=== PATIENT | male | born 1970 | race Caucasian/White ===

== ENCOUNTER 2016-04-10 02:40 | Emergency (ER) | payer SELFPAY ==
[~2016-04-10] VITALS: Ht 182.9 cm; Wt 91.3 kg
[~2016-04-10 02:40] MED LIST: DICL75 PO
[2016-04-10 02:46] VITALS: BP 131/88; PULSE 70; RESP 16; TEMP 98.1; O2SAT 96
[2016-04-10] MEDS ORDERED: IBUP800T23 PO (04:23)
--- NOTE | 2016-04-10 04:24 | PD ---
HPI Chief Complaint: Oral / Dental Pain or Problem Time Seen by Provider: 04:13 Travel History International Travel<30 days: No Contact w/Intl Traveler<30days: No Traveled to known affect area: No History of Present Illness HPI The patient is a 45-year-old male that complains of dental pain around tooth #1 since 11 PM tonight. He denies any fever. He does have a cracked tooth around tooth #4. He states the pain is diffuse and not very specific to one single tooth. He did not call a dentist yet. [facility] Past Medical History Diminished Hearing: No Kidney Stones: Yes Immunizations Current: Yes Past Surgical History Appendectomy: Yes Social History Alcohol Use: Yes (OCCASIONAL) Tobacco Use: No Substance Use: No Allergies-Medications (Allergen,Severity, Reaction): Coded Allergies: No Known Allergies (Verified , 04/10/16) Reported Meds & Prescriptions Reported Meds & Active Scripts Active No Active Prescriptions or Reported Medications Review of Systems Except as stated in HPI: all other systems reviewed are Neg Physical Exam Narrative GENERAL: Well-nourished, well-developed patient in slight apparent distress with his dental pain. His vital signs are normal. SKIN: Warm and dry. HEAD: Normocephalic. EYES: No scleral icterus. No injection or drainage. NECK: Supple, trachea midline. No JVD or lymphadenopathy. CARDIOVASCULAR: Regular rate and rhythm without murmurs, gallops, or rubs. RESPIRATORY: Breath sounds equal bilaterally. No accessory muscle use. GASTROINTESTINAL: Abdomen soft, non-tender, nondistended. MUSCULOSKELETAL: No cyanosis, or edema. BACK: Nontender without obvious deformity. No CVA tenderness. DENTAL: No loose teeth. No malocclusion. No drainable abscesses are noted. There is a chipped tooth on tooth #4. There is tenderness around the wisdom tooth next to tooth #1. Data Data Last Documented VS Vital Signs Date Time Temp Pulse Resp B/P Pulse Ox O2 Delivery O2 Flow Rate FiO2 04/10/16 02:46 98.1 70 16 131/88 96 MDM Medical Decision Making Medical Screen Exam Complete: Yes Emergency Medical Condition: Yes Medical Record Reviewed: Yes Differential Diagnosis Dental infection, drug seeking behavior, drainable dental abscess Narrative Course The patient has a dental infection. He has no drainable dental abscesses. Plan: The patient be given amoxicillin 500 mg 3 times daily with several refills and he is to follow-up with a dentist. He is also given Motrin 800 mg to take 3 times daily. Diagnosis Primary Impression: Dental infection Additional Instructions: As we discussed, it is necessary to follow-up with a dentist. The amoxicillin is free at [facility] pharmacy. Take the appropriate regularly along with Tylenol and this is usually more than enough to relieve the pain. Med/Other Pt SpecificInfo: Prescription(s) given Scripts Ibuprofen 800 Mg Bme374 Mg PO TID #45 TAB Ref 0 Prov:Grant Nam MD 04/10/16 Disposition: DISCHARGE HOME Condition: Stable Grant Nam MD Apr 10, 2016 04:23
[2016-04-10] MEDS ORDERED: AMOXICILLIN 875 MG TAB PO ONE (04:30)
[2016-04-10] MEDS ORDERED: IBUPROFEN 800 MG TAB PO ONE (04:30)
[2016-04-10] MEDS ORDERED: AMOX500C PO (04:36)
[2016-04-10] MEDS ORDERED: LIDOCAINE 1%/EPINEPHrine 1:100,000 SOLN 20 ML VIAL INFIL ONE (05:00)
[2016-04-10] MEDS ORDERED: PERC5TAB12 PO (05:16)
== END 2016-04-10 05:21 | disposition home or self-care (01) ==
LOC: PHED 02:40
DX: K04.7 Periapical abscess without sinus (principal); Z87.442 Personal history of urinary calculi
CPT/HCPCS: 99282

== ENCOUNTER 2016-09-08 20:56 | Emergency (ER) | payer SELFPAY ==
[~2016-09-08 20:56] MED LIST changes: +AMOX500C PO; -DICL75 PO; +IBUP800T23 PO; +PERC5TAB12 PO
[2016-09-08 21:00] VITALS: BP 140/79; PULSE 54; RESP 20; TEMP 97.3; O2SAT 97
[2016-09-08] MEDS ORDERED: MELO-1 PO (21:38)
[2016-09-08] MEDS ORDERED: PENI250T PO (21:38)
--- NOTE | 2016-09-08 21:39 | PD ---
HPI Chief Complaint: Oral / Dental Pain or Problem Time Seen by Provider: 21:05 Travel History International Travel<30 days: No Contact w/Intl Traveler<30days: No Traveled to known affect area: No History of Present Illness HPI 46-year-old male presents emergency department for evaluation of left upper dental pain times several weeks. Patient reports that over the last week has become increasingly more painful prompting his visit today. He reports he actually had a tetanus appointment this morning but for some reason did not go to the appointment. He reports he's had dental infections in the past with similar pain. He denies fever or chills. Severity is mild, no aggravating or alleviating factors. PFSH Past Medical History Medical History: Denies Significant Hx Diminished Hearing: No Kidney Stones: Yes Immunizations Current: Yes Tetanus Vaccination: < 5 Years Influenza Vaccination: No Past Surgical History Appendectomy: Yes Social History Alcohol Use: Yes (Occ.) Tobacco Use: No Substance Use: No Allergies-Medications (Allergen,Severity, Reaction): Coded Allergies: No Known Allergies (Verified , 09/08/16) Reported Meds & Prescriptions Reported Meds & Active Scripts Active No Active Prescriptions or Reported Medications Review of Systems Except as stated in HPI: all other systems reviewed are Neg General / Constitutional: No: Fever Eyes: No: Visual changes HENT: No: Headaches Cardiovascular: No: Chest Pain or Discomfort Respiratory: No: Shortness of Breath Gastrointestinal: No: Abdominal Pain Genitourinary: No: Dysuria Physical Exam Narrative GENERAL: Well-nourished, well-developed patient. SKIN: Focused skin assessment warm/dry. HEAD: Normocephalic. EYES: No scleral icterus. No injection or drainage. MOUTH: Tooth #15 decayed with surrounding gum erythema. Area is tender to palpation. No identifiable fluctuant abscess. NECK: Supple, trachea midline. No JVD or lymphadenopathy. CARDIOVASCULAR: Regular rate and rhythm without murmurs, gallops, or rubs. RESPIRATORY: Breath sounds equal bilaterally. No accessory muscle use. GASTROINTESTINAL: Abdomen soft, non-tender, nondistended. MUSCULOSKELETAL: No cyanosis, or edema. BACK: Nontender without obvious deformity. No CVA tenderness. Data Data Last Documented VS Vital Signs Date Time Temp Pulse Resp B/P Pulse Ox O2 Delivery O2 Flow Rate FiO2 09/08/16 21:00 97.3 54 20 140/79 97 MDM Medical Decision Making Medical Screen Exam Complete: Yes Emergency Medical Condition: Yes Differential Diagnosis Dental caries, dental infection, dental abscess Narrative Course 46-year-old male with one-week history of left upper dental pain. On exam patient has gum swelling around tooth #15. Patient will be treated with antibiotics and NSAIDs. Patient instructed to follow with his dentist. Diagnosis Primary Impression: Dental infection Referrals: Dentist Scripts Meloxicam 15 Mg Tab15 Mg PO DAILY #30 TAB Ref 0 Prov:Peggy Corral 09/08/16 Penicillin V Potassium 250 Mg Otf221 Mg PO Q6H #28 TAB Prov:Peggy Corral 09/08/16 Disposition: 01 DISCHARGE HOME Condition: Stable Peggy Corral Sep 08, 2016 21:39
== END 2016-09-08 21:45 | disposition home or self-care (01) ==
LOC: PHEFT 20:56
DX: K04.7 Periapical abscess without sinus (principal)
CPT/HCPCS: 99284

== ENCOUNTER 2016-12-24 13:55 | Emergency (ER) | payer SELFPAY ==
[~2016-12-24] VITALS: Ht 182.9 cm; Wt 89.0 kg
[~2016-12-24 13:55] MED LIST changes: -AMOX500C PO; -IBUP800T23 PO; +MELO15TA20 PO; +PENI250T PO; -PERC5TAB12 PO
[2016-12-24 13:57] VITALS: BP 165/97; PULSE 67; RESP 18; TEMP 97.6; O2SAT 98
[2016-12-24] MEDS ORDERED: predniSONE 20 MG TAB PO ONE (14:15)
[2016-12-24] MEDS ORDERED: PRED20 PO (14:22)
--- NOTE | 2016-12-24 14:22 | PD ---
HPI Chief Complaint: Cold / Flu Symptoms Time Seen by Provider: 14:04 Travel History International Travel<30 days: No Contact w/Intl Traveler<30days: No Traveled to known affect area: No History of Present Illness HPI The patient is a 46-year-old male who presents emergency department for allergic related symptoms. The patient has a history of allergies, has been followed by sales associate key holder for years in the past, states his allergy season normally starts in February. However, the last 2 weeks the patient has had increasing nasal congestion, nasal discharge, and postnasal drip. He denies any fever. He has taken [id number] antihistamines in the past without any alleviation of his symptoms as well as nasal steroids in the past without any alleviation of his symptoms. The patient denies any fever, chills, or sweats. He denies any wheezing or cough. Symptoms are mild to moderate, exacerbated by history of allergies, and alleviated in the past with prednisone. PFSH Past Medical History Medical History: Denies Significant Hx Diminished Hearing: No Kidney Stones: Yes Immunizations Current: Yes Tetanus Vaccination: Unknown Influenza Vaccination: No Past Surgical History Appendectomy: Yes Social History Alcohol Use: Yes (Occ.) Tobacco Use: No Substance Use: No Allergies-Medications (Allergen,Severity, Reaction): Coded Allergies: No Known Allergies (Verified Adverse Reaction, Unknown, 12/24/16) Reported Meds & Prescriptions Reported Meds & Active Scripts Active Review of Systems General / Constitutional: No: Fever HENT: Positive: Rhinitis, Congestion Cardiovascular: No: Chest Pain or Discomfort Respiratory: No: Cough, Shortness of Breath Gastrointestinal: No: Nausea, Vomiting Skin: No Rash, No Itching Physical Exam Narrative GENERAL: Awake, alert, pleasant 46-year-old male who appears his stated age and is in no acute respiratory distress. SKIN: Focused skin assessment warm/dry. HEAD: Atraumatic. Normocephalic. EYES: Pupils equal and round. No scleral icterus. No injection or drainage. ENT: Erythematous engorged turbinates. Cobblestoning in posterior oropharynx. No exudate noted. NECK: Trachea midline. No JVD. No cervical lymphadenopathy noted. CARDIOVASCULAR: Regular rate and rhythm. No murmur appreciated. RESPIRATORY: No accessory muscle use. Clear to auscultation. Breath sounds equal bilaterally. No wheezing noted. MUSCULOSKELETAL: No obvious deformities. No clubbing. No cyanosis. No edema. NEUROLOGICAL: Awake and alert. No obvious cranial nerve deficits. Motor grossly within normal limits. Normal speech. PSYCHIATRIC: Appropriate mood and affect; insight and judgment normal. Data Data Last Documented VS Vital Signs Date Time Temp Pulse Resp B/P (MAP) Pulse Ox O2 Delivery O2 Flow Rate FiO2 12/24/16 13:57 97.6 67 18 165/97 (119) 98 Orders Orders Prednisone (Deltasone) (12/24/16 14:15) [facility] Medical Decision Making Medical Screen Exam Complete: Yes Emergency Medical Condition: Yes Medical Record Reviewed: Yes Differential Diagnosis Differential diagnosis includes allergic reaction, environmental allergies, URI , postnasal drip. Narrative Course The patient appears to have an exacerbation of allergies, states over-the- counter antihistamines and nasal steroid's will offer no alleviation of his symptoms. As the patient has been symptomatic for 2 weeks, I will treat with 5 days of prednisone. He is advised to use [id number] nonsedating antihistamine such as loratadine. Follow-up with his sales associate key holder and/or primary physician. Return if symptoms worsen or progress. Diagnosis Primary Impression: Environmental allergies Patient Instructions: General Instructions Additional Instructions: Medications as directed. Follow-up with your primary physician and/or sales associate key holder. Return if symptoms worsen or progress. Med/Other Pt SpecificInfo: Prescription(s) given Scripts Prednisone (Prednisone) 20 Mg Tab 40 MG PO DAILY for 4 Days, #8 TAB 0 Refills Prov: Alessio Morris MD 12/24/16 Disposition: 01 DISCHARGE HOME Condition: Stable Alessio Morris MD Dec 24, 2016 14:22
== END 2016-12-24 14:40 | disposition home or self-care (01) ==
LOC: PHEFT 13:55
DX: T78.49XA Other allergy, initial encounter (principal); R09.81 Nasal congestion; R09.82 Postnasal drip
CPT/HCPCS: 99283; J7512